=== PATIENT | female | born 1970 | race African-American/Black ===

== ENCOUNTER 2019-07-28 01:37 | Emergency (ER) | payer MEDICAID ==
[~2019-07-28] VITALS: Ht 162.6 cm; Wt 55.0 kg
[2019-07-28] MEDS ORDERED: KETOROLAC 30MG/ML VIAL IM ONE (02:30)
[2019-07-28] MEDS ORDERED: CEPHALEXIN 250MG CAPSULE PO ONE ×3 (02:30→09:45)
[2019-07-28 08:04] VITALS: BP 130/80
== END 2019-07-28 10:09 | disposition home or self-care (01) ==
LOC: ER 01:37
DX: S90.822A Blister (nonthermal), left foot, initial encounter (principal); S90.821A Blister (nonthermal), right foot, initial encounter; Z59.0 Homelessness; X58.XXXA Exposure to other specified factors, initial encounter; Y93.89 Activity, other specified; Y92.488 Other paved roadways as the place of occurrence of the external cause
CPT/HCPCS: 99283; J1885

== ENCOUNTER 2019-07-28 22:16 | Emergency (ER) | payer MEDICAID ==
[~2019-07-28] VITALS: Ht 162.6 cm; Wt 55.0 kg
[2019-07-28 23:03] VITALS: BP 121/71
== END 2019-07-28 23:07 | disposition home or self-care (01) ==
LOC: ER 22:16
DX: M79.672 Pain in left foot (principal); M79.671 Pain in right foot; Z88.3 Allergy status to other anti-infective agents
CPT/HCPCS: 99281; 99283

== ENCOUNTER 2019-10-08 00:03 | Emergency (ER) | payer MEDICAID ==
[~2019-10-08] VITALS: Ht 162.6 cm; Wt 61.0 kg
[2019-10-08 01:07] VITALS: BP 110/69
== END 2019-10-08 01:50 | disposition home or self-care (01) ==
LOC: ER 00:03
DX: L85.3 Xerosis cutis (principal); L84 Corns and callosities; F17.210 Nicotine dependence, cigarettes, uncomplicated; Z88.3 Allergy status to other anti-infective agents
CPT/HCPCS: 99281

== ENCOUNTER 2019-10-14 15:20 | Emergency (ER) | payer MEDICAID ==
[~2019-10-14] VITALS: Ht 165.1 cm; Wt 55.0 kg
[2019-10-14] MEDS ORDERED: HALOPERIDOL LACTATE 5MG/ML VIAL IM ONE (16:15)
[2019-10-14 16:35] LABS: BASOPHILS % 0.7 % (0.0-2.0); EOSINOPHILS % 0.3 % (0.0-5.0); HEMATOCRIT. 37.5 % (36.0-48.0); HEMOGLOBIN. 12.7 g/dL (12.0-16.0); LYMPHOCYTES % 12.4 % (20.0-50.0); MEAN CORPUSCULAR VOLUME 91.3 fL (81.0-99.0); MEAN PLATELET VOLUME 7.1 fl (7.4-10.4); MONOCYTES % 8.5 % (2.0-8.0); NEUTROPHILS % 78.1 % (40.0-76.0); PLATELET 268 x1000/uL (130-400); RED BLOOD CELL COUNT 4.11 mill/uL (4.2-5.4); RED CELL DISTRIBUTION WIDTH 13.3 % (11.6-14.6)
[2019-10-14 16:40] LABS: CHLORIDE 110 mEq/L (98-107)
[2019-10-14 16:44] LABS: ETHANOL BLOOD < 10 mg/dL
[2019-10-15 08:00] VITALS: BP 145/79
[2019-10-15 08:18] LABS: CLARITY URINE CLEAR (CLEAR); COLOR URINE YELLOW (YELLOW); KETONES URINE 2+ (NEGATIVE); LEUKOCYTE ESTERASE URINE TRACE (NEGATIVE); NITRITE URINE NEGATIVE (NEGATIVE); OCCULT BLOOD URINE 3+ (NEGATIVE); PH URINE 5.5 (4.5-8.0); PROTEIN URINE 1+ (NEGATIVE)
[2019-10-15 08:39] LABS: *AMPHETAMINES SCREEN URINE NEGATIVE (NEGATIVE); *BARBITURATES SCREEN URINE NEGATIVE (NEGATIVE); *BENZODIAZEPINES SCREEN URINE NEGATIVE (NEGATIVE); *COCAINE SCREEN URINE NEGATIVE (NEGATIVE)
[2019-10-15 08:40] LABS: CANNABINOID URINE SCREEN NEGATIVE (NEGATIVE); METHADONE URINE SCREEN NEGATIVE (NEGATIVE); OPIATES URINE SCREEN NEGATIVE (NEGATIVE); PHENCYCLIDINE URINE SCREEN NEGATIVE (NEGATIVE)
== END 2019-10-15 12:39 | disposition home or self-care (01) ==
LOC: ER 15:20
DX: F23 Brief psychotic disorder (principal); Z78.1 Physical restraint status; Z59.0 Homelessness; Z88.3 Allergy status to other anti-infective agents
CPT/HCPCS: 36415; 80053; 80305; 80307; 80320; 80329; 81003; 85025; 96372; 99285; J1630; G0480

== ENCOUNTER 2019-10-17 20:50 | Emergency (ER) | payer MEDICAID ==
[~2019-10-17] VITALS: Ht 165.1 cm; Wt 56.0 kg
[2019-10-17 21:05] VITALS: BP 122/72
== END 2019-10-17 23:26 | disposition left against medical advice (07) ==
LOC: ER 20:50
DX: M79.672 Pain in left foot (principal); Z53.21 Procedure and treatment not carried out due to patient leaving prior to being seen by health care provider